=== PATIENT | male | born 1950 | race Caucasian/White ===

== ENCOUNTER 2024-03-08 09:25 | Emergency (ER) | payer MEDICARE, SELFPAY ==
--- NOTE | 2024-03-08 09:41 | XRR_ITS ---
PROCEDURE INFORMATION: Exam: XR Right Foot Exam date and time: 03/08/2024 9:47 AM Age: 73 years old Clinical indication: Prior surgery; Surgery date: 6+ months; Surgery type: Unspecified; Patient HX: PT states that pain started 3-4 day ago in right foot. PT denies any injuries, PT is not able to bear weight on foot. PT did not take any medications for pain. PT rates pain 9/10. PT states he is usually ambulatory but hasn't been able to get around well. TECHNIQUE: Imaging protocol: Radiologic exam of the right foot. Views: 3 or more views. COMPARISON: No relevant prior studies available. FINDINGS: Bones/joints: Diffuse osteopenia. No acute fracture. Chronic osseous deformity of the metatarsophalangeal joints. Chronic degenerative changes of the cuneiform joints. Soft tissues: Soft tissue swelling along the plantar forefoot. XR/XR foot RT min 3V* [id number] IMPRESSION: 1. Diffuse osteopenia without evidence of acute fracture. 2. Soft tissue swelling in the plantar forefoot.
[2024-03-08 09:44] VITALS: BP 133/72; PULSE 97; RESP 18; TEMP 36.5; O2SAT 97; BMI 29.2
[2024-03-08 10:14] VITALS: PULSE 87; O2SAT 96
--- NOTE | 2024-03-08 10:20 | W.ED.EXTPRO ---
HPI - Extremity Problem General: Chief complaint: Extremity Injury, Lower Stated complaint: right foot pain Time Seen by Provider: 03/08/24 09:33 History of Present Illness: 73-year-old male with a history of previous injury to the right foot complains of sudden onset of pain in the midfoot in the sole of the foot at the region of the proximal third fourth metatarsals. No injury or trauma no triggering event. He has significant deformity the foot from a remote injury from a fall. He usually wears orthotics to be able to tolerate walking and does have some pressure points especially at the distal part of the fifth metatarsal on the right foot. No fever sweats or chills or trauma Associated symptoms: Deny chest pain or fever(s) Review of Systems Const: Denies: fever(s) or chills Card: Denies: chest pain Resp: Denies: dyspnea Musc: Reports: extremity pain and joint pain PFS ED PFSH: Medical History Colon cancer BPH (benign prostatic hyperplasia) RBBB Hypertension PVC (premature ventricular contraction) Surgical History S/P colon resection History of tonsillectomy and adenoidectomy Hx of cholecystectomy Family History Other Hypertension Social History Smoking and tobacco/nicotine status: former use of tobacco/nicotine Alcohol intake: current Alcohol intake frequency: other Substance/Drug Use: never Physical Exam Const: COMMON NORMALS: no acute distress GENERAL APPEARANCE: cooperative and comfortable ORIENTATION/CONSCIOUSNESS: Yes awake, Yes oriented to person, Yes oriented to place and Yes oriented to time HENMT: COMMON NORMALS: normocephalic, atraumatic and hearing grossly normal bilaterally HEAD & SCALP: normocephalic and atraumatic Resp: COMMON NORMALS: normal respiratory effort, No retractions, No use of accessory muscles and clear to auscultation bilaterally AUSCULTATION: clear to auscultation bilaterally Cardio: COMMON NORMALS: regular rate, regular rhythm and No murmurs present (Cardio) RATE: regular rate RHYTHM: regular rhythm Extremity: OTHER: No evidence acute fracture deformity of the toes with hyperextension. Signs of pressure ulcer sole of foot at distal 5th metatarsal Neuro: SENSORIUM/ORIENTATION: Yes oriented to person, Yes oriented to place and Yes oriented to time Skin: COMMON NORMALS: no rashes or lesions noted GENERAL SKIN EXAM: no rashes or lesions noted Course Vital Signs: Vital signs: Vital Signs Temperature 97.7 F 03/08/24 09:44 Pulse Rate 87 03/08/24 10:14 Respiratory Rate 18 03/08/24 09:44 Blood Pressure 133/72 03/08/24 09:44 Pulse Oximetry 96 03/08/24 10:14 MDM - Extremity (Nontraumatic) Medical Decision Making Imaging reviewed I do not appreciate any acute fractures there is deformity with hyperextension of the toes. No sign of stress fracture there is some mild demineralization. X-ray to overread. Discharge patient home recommend crutches nonweightbearing diclofenac as needed. Can use ice to your heat as per comfort follow-up with podiatry XR interpretation done by ED provider, pending radiology final review Discharge Plan Discharge Patient Disposition: Home Clinical Impression: Foot pain, right Condition: Stable Prescriptions: New diclofenac sodium 75 mg tablet,delayed release (DR/EC) 75 mg PO Q12H PRN (Reason: pain) Qty: 20 0RF No Action losartan 50 mg tablet 50 mg PO DAILY pantoprazole 20 mg tablet,delayed release (DR/EC) 20 mg PO DAILY Discharge Orders: Discharge ED (Routine); Ordered 03/08/24 Ordered By: Arturo Youngblood Referrals: Mary Garcia NP [Primary Care Provider] - Discharge Diet: Usual diet Discharge Activity: Resume usual activity Patient Instructions: Opioid Safety, Pain Management Activity Restrictions/Additional Instructions: Thank you for choosing [facility] for your healthcare needs today. It is very important that you follow up as instructed or that you return to the Emergency Department should you have concerns or if your condition changes or worsens in any way. You were seen today with complaint of right foot pain. There is obvious abnormalities in alignment in the foot from the previous injury however there is not appear to be any fractures. Given the degree of discomfort you are expressing recommend using the diclofenac as needed for pain elevate and ice as needed recommend being nonweightbearing with crutches and will set you up to follow-up with the varnish melter helper. Coding Level of Care Code ED Imcu Nurse for Bob Toscano
--- NOTE | 2024-03-12 07:47 | DCPLANNER ---
messaged podiatry for er f/u
== END 2024-03-08 10:16 | disposition home or self-care (01) ==
PROVIDERS: Emergency Provider Family Medicine; PCP Nurse Practitioner Family
DX: M79.671 Pain in right foot (principal); Z85.038 Personal history of other malignant neoplasm of large intestine; I10 Essential (primary) hypertension; Z87.891 Personal history of nicotine dependence
CPT/HCPCS: 73630; 99283; E0114

== ENCOUNTER 2025-08-05 10:04 | Emergency (ER) | payer OTHER, SELFPAY ==
--- NOTE | 2025-08-05 10:06 | XR_ITS ---
WS: [id number] Right shoulder, 3 views, 08/05/2025 Clinical Data: pain Comparison: None. Findings: No fractures or dislocations are seen. There is narrowing and irregularity of the glenohumeral joint. The AC joint is normal. The adjacent right clavicle, right scapula and ribs are normal. The soft tissues are unremarkable. There is an infusion catheter overlying the right chest entering the internal jugular vein. XR/XR shoulder RT min 2V* [id number] Impression: Osteoarthritis of the right glenohumeral joint.
[2025-08-05 10:20] VITALS: BP 140/75; PULSE 74; RESP 20; TEMP 36.4; O2SAT 96
--- NOTE | 2025-08-05 10:32 | W.ED.EXTPRO ---
HPI - Extremity Problem General: Chief complaint: Extremity Injury, Upper Stated complaint: R shoulder pain Time Seen by Provider: 08/05/25 10:18 History of Present Illness: 74-year-old male right shoulder pain fell 1 month ago from what he relates to be about 55 feet he was not seen at that time his denies striking his head no loss of consciousness he has severe pain in his right shoulder since his significant loss of abduction. No injury since that time. Patient is prescribed oxycodone from his primary care doctor he showed me a bottle that he has for 10 mg tablets he states he is taking 3 at a time and still having the pain in his shoulder. Associated symptoms: Deny chest pain, fever(s) or rash Related Data Home Medications ?Medication ?Instructions ?Recorded ?Confirmed losartan 50 mg tablet 50 mg PO DAILY 08/02/20 05/03/23 pantoprazole 20 mg tablet,delayed 20 mg PO DAILY 08/02/20 05/03/23 release Previous Rx's ?Medication ?Instructions ?Recorded diclofenac sodium 75 mg 75 mg PO Q12H PRN pain #20 tabs 03/08/24 tablet,delayed release diclofenac sodium 75 mg 75 mg PO Q12H PRN pain #20 tabs 08/05/25 tablet,delayed release Allergies Allergy/AdvReac Type Severity Reaction Status Date / Time No Known Allergies Allergy Verified 05/03/23 07:47 Review of Systems Const: Denies: fever(s) or chills Card: Denies: chest pain Resp: Denies: dyspnea GI: Denies: abdominal pain : Denies: dysuria, urinary frequency or urinary urgency Musc: Denies: neck pain or back pain Skin/Breast: Denies: rash PFSH ED PFSH: Medical History Colon cancer BPH (benign prostatic hyperplasia) RBBB Hypertension PVC (premature ventricular contraction) Surgical History S/P colon resection History of tonsillectomy and adenoidectomy Hx of cholecystectomy Family History Other Hypertension Social History Smoking and tobacco/nicotine status: former use of tobacco/nicotine Alcohol intake: current Alcohol intake frequency: other Substance/Drug Use: never Physical Exam Const: COMMON NORMALS: no acute distress GENERAL APPEARANCE: cooperative and comfortable ORIENTATION/CONSCIOUSNESS: Yes awake, Yes oriented to person, Yes oriented to place and Yes oriented to time HENMT: COMMON NORMALS: normocephalic, atraumatic and hearing grossly normal bilaterally HEAD & SCALP: normocephalic and atraumatic Resp: COMMON NORMALS: normal respiratory effort, No retractions, No use of accessory muscles and clear to auscultation bilaterally AUSCULTATION: clear to auscultation bilaterally Cardio: COMMON NORMALS: regular rate, regular rhythm and No murmurs present (Cardio) RATE: regular rate RHYTHM: regular rhythm Extremity: OTHER: Limited flexion or extension and abduction. Positive impingement sign although it is difficult to actually get him to 90 degrees to fully test. While in a neutral position he does have pain with both internal and external rotation. Neuro: SENSORIUM/ORIENTATION: Yes oriented to person, Yes oriented to place and Yes oriented to time Skin: COMMON NORMALS: no rashes or lesions noted GENERAL SKIN EXAM: no rashes or lesions noted Course Vital Signs: Vital signs: Vital Signs Temperature 97.6 F 08/05/25 10:20 Pulse Rate 74 08/05/25 10:20 Respiratory Rate 20 H 08/05/25 10:20 Blood Pressure 140/75 08/05/25 10:20 Pulse Oximetry 96 08/05/25 10:20 Oxygen Delivery Me thod Room Air 08/05/25 10:20 MDM - Extremity (Nontraumatic) Medical Decision Making Medical decision making Social determinants: None I reviewed the patient's medical record. I reviewed the patient's current home meds. Alternate historians: None Differential diagnosis: Rotator cuff tendinopathy. Traumatic rotator cuff injury. Proximal humerus fracture distal clavicle fracture AC joint separation Lab Review: None Imaging: X-ray of the right shoulder unremarkable shows significant osteoarthritic changes but no acute fractures or healing fractures of the distal clavicle proximal humerus noted no dislocation of the shoulder noted Assessment of risk Level of risk: Low Hospitalization considerations: No indication for hospitalization Reexamination: Unchanged Assessment and plan: Patient requesting something stronger than 30 mg at a time he is taking the immediate release oxycodone. Will add diclofenac and place him in a sling limit use of the right arm and have him follow-up with orthopedics. Discussed with him since he is getting narcotics prescribed from another source we cannot prescribe more he would have to follow-up with that doctor to see if they want to change the dose or frequency of the oxycodone. Lab Data Radiology Impressions Shoulder X-Ray 08/05/25 10:06 Impression: Osteoarthritis of the right glenohumeral joint. All radiology interpretation(s) finalized by discharge Discharge Plan Discharge Patient Disposition: Home Clinical Impression: Tendinopathy of right rotator cuff Condition: Stable Prescriptions: New diclofenac sodium 75 mg tablet,delayed release (DR/EC) 75 mg PO Q12H PRN (Reason: pain) Qty: 20 0RF No Action losartan 50 mg tablet 50 mg PO DAILY pantoprazole 20 mg tablet,delayed release (DR/EC) 20 mg PO DAILY diclofenac sodium 75 mg tablet,delayed release (DR/EC) 75 mg PO Q12H PRN (Reason: pain) Qty: 20 0RF Discharge Orders: Discharge ED (Routine); Ordered 08/05/25 Ordered By: Arturo Youngblood Referrals: Mary Garcia NP [Primary Care Provider, Unknown] Discharge Diet: Usual diet Discharge Activity: Limit activity as instructed Patient Instructions: Opioid Safety, Pain Management, Patient Portal & Arya Instructions Activity Restrictions/Additional Instructions: Thank you for choosing [facility] [place] [facility] for your healthcare needs today. It is very important that you follow up as instructed or that you return to the Emergency Department should you have concerns or if your condition changes or worsens in any way. Emergency department visits are focused on emergent conditions, in some cases you may require further evaluation on an outpatient basis. You are seen in the emergency room with complaint of right shoulder pain 1 month after a fall. X-ray shows arthritic changes but no acute fractures. Suspect based on your exam you may have some injury to your rotator cuff. Will place you in an arm sling gave you prescription for diclofenac and we will set you up to follow-up with the orthopedic surgeon. (Please note that included in your discharge packet is information concerning opioid safety and pain management. This information is given to all patients were discharged from the ER regardless of their discharge diagnosis or the medicines they usually take or are prescribed.) Print Language: South Korean Coding Level of Care Code ED Senior Product Analyst for Bob Toscano
--- OUTSIDE RECORDS SUMMARY | 2025-08-05 11:19 | XMS_ITS | Clinical Summary ---
Author Organization [facility] Address [address] [place]: Epic Prelude ADT [place] [address] Care Team Providers Care Cricket Coach Name Role Phone Urbano Hassan Primary Care Provider [phone] Allergies No known active allergies Active Problems Problem Noted Date Diagnosed Date Peptic ulcer disease 04/18/2013 Hiatal hernia 04/18/2013 Peptic esophageal ulcer 04/18/2013 Dysphagia 04/08/2013 Family History Medical History Relation Name Comments Cancer Father liver Colon Cancer Father Breast Cancer Mother Heart Disease Mother Diabetes Neg Hx Relation Name Status Comments Father Mother Social History Tobacco Use Types Packs/Day Years Used Date Smoking Tobacco: Former Smokeless Tobacco: Never Alcohol Use Standard Drinks/Week Comments No 0 (1 standard drink = 0.6 oz pur e alcohol) Sex and Gender Information Value Date Recorded Sex Assigned at Not on file 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
--- OUTSIDE RECORDS SUMMARY | 2025-08-05 11:19 | XMS_ITS | Clinical Summary ---
Author Organization [facility] Address [address] [place] [address] Phone Care Team Providers Care Meat And Seafood Manager Name Role Phone Urbano Hassan Primary Care Provider Allergies No known active allergies Medications terbinafine (LAMISIL) 250 mg Oral tablet Take 250 mg by mouth daily. Active atenolol (TENORMIN) 25 mg tablet Take 25 mg by mouth daily. Active losartan-hydroch lorothiazide (HYZAAR) 100-12.5 mg tablet Take 0.5 Tabs by mouth daily. Active pantoprazole (PROTONIX) 40 mg Tablet, Delayed Release (E.C.)Indication s:Hiatal hernia,Peptic ulcer disease Take 1 Tab by mouth daily. 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 Pulse 80 10/03/2013 2:23 PM ASSEMBLY LINE WORKER Temperature 36.4 C (97.5 F) 10/03/2013 2:23 PM ASSEMBLY LINE WORKER Respiratory Rate 18 04/10/2013 9:24 AM CDT Oxygen Saturation 98% 10/03/2013 2:23 PM ASSEMBLY LINE WORKER Inhaled Oxygen Concentration - - Weight 107.5 kg (237 lb) 10/03/2013 2:23 PM ASSEMBLY LINE WORKER Height 182.9 cm (6') 10/03/2013 2:23 PM ASSEMBLY LINE WORKER Body Mass Index 32.14 10/03/2013 2:23 PM ASSEMBLY LINE WORKER Plan of Treatment Health Maintenance Due Date Last Done Comments DTAP/TDAP/TD VACCINES (1 - Tdap) 10/29/1967 PNEUMOCOCCAL VACCINE 50+ YEARS (1 of 1 - PCV) 10/28/18 99 ZOSTER VACCINE (1 of 2) 1998 RSV VACCINE (60+ or ) (1 - 1-dose 75+ series) 10/29/2023 INFLUENZA VACCINE (#1) 2025 Insurance MEDICARE PART A AND B Care Teams Meat And Seafood Manager Relationship Specialty Start Date End Date Urbano Hassan PA PCP - General Physician Oxygen Tank Filler 04/10/13
--- NOTE | 2025-08-05 11:24 | PC.NURSE ---
pt order for sling, fnps slings found, called storeroom, spoke to a Ranjan who stated he would bring us the universal arm slings.
[2025-08-05 11:30] VITALS: BP 140/78; PULSE 73; O2SAT 96
== END 2025-08-05 11:30 | disposition home or self-care (01) ==
PROVIDERS: Emergency Provider Family Medicine; PCP Nurse Practitioner Family
DX: M67.813 Other specified disorders of tendon, right shoulder (principal); Z87.891 Personal history of nicotine dependence; I10 Essential (primary) hypertension; Z85.038 Personal history of other malignant neoplasm of large intestine
CPT/HCPCS: 73030; 99283; A4565